=== PATIENT | male | born 1985 | race African-American/Black ===

== ENCOUNTER 2019-10-11 18:37 | Emergency (ER) | payer OTHER ==
[~2019-10-11] VITALS: Ht 193 cm; Wt 79.4 kg
[2019-10-11 20:18] VITALS: BP 142/77
== END 2019-10-11 20:18 | disposition home or self-care (01) ==
LOC: ER 18:37
DX: J02.9 Acute pharyngitis, unspecified (principal); F17.210 Nicotine dependence, cigarettes, uncomplicated